=== PATIENT | male | born 1970 | race Caucasian/White ===

== ENCOUNTER 2017-11-15 05:43 | Emergency (ER) | payer OTHER ==
[~2017-11-15] VITALS: Ht 175.3 cm; Wt 78.5 kg
[2017-11-15 05:44] VITALS: BP 129/81
[2017-11-15] MEDS ORDERED: LIDOCAINE-MPF 2%, 2ML ONE (06:41)
[2017-11-15] MEDS ORDERED: LIDOCAINE-MPF 2%, 2ML SQ ONE (07:00)
[2017-11-15] MEDS ORDERED: DIPH,PERTUSS(ACELL),TET VAC/PF NC IM-VACC ONE (08:00)
[2017-11-15] MEDS ORDERED: DIPH,PERTUSS(ACELL),TET VAC/PF 0.5 ML IM-VACC ONE (08:11)
== END 2017-11-15 08:30 | disposition home or self-care (01) ==
LOC: ED 08:00
DX: S61.042A Puncture wound with foreign body of left thumb without damage to nail, initial encounter (principal); W45.8XXA Other foreign body or object entering through skin, initial encounter; Y93.89 Activity, other specified; Y99.8 Other external cause status; Y92.69 Other specified industrial and construction area as the place of occurrence of the external cause
CPT/HCPCS: 10120; 90471; 90715